=== PATIENT | male | born 1965 | race Caucasian/White ===

== ENCOUNTER 2018-06-05 10:31 | Emergency (ER) | payer OTHER, SELFPAY ==
[2018-06-05 10:35] VITALS: BP 149/76; PULSE 72; RESP 20; TEMP 36.8; O2SAT 97
--- NOTE | 2018-06-05 10:50 | W.ED.GENAD ---
Discharge Plan Disposition Patient Disposition: HOME Condition: Improving Discharge Details Chief Complaint: Nk/Back Pain Clinical Impression: Back pain, Muscle spasm, Sciatica Primary Care Provider: Lour[facility] Chambers ED Provider: Andree Henry Home Meds and New Rx's Prescriptions: Continued glipizide 10 MG tablet 20 mg PO BID RF: 0 amlodipine 10 MG tablet 10 mg PO DAILY RF: 0 metformin [Glucophage] 1,000 MG tablet 1,000 mg PO BID RF: 0 omeprazole 20 MG capsule,delayed release(DR/EC) 40 mg PO DAILY RF: 0 aspirin [Aspirin Low-Strength] 81 MG tablet,chewable 81 mg PO DAILY RF: 0 epinephrine [EpiPen 2-Navjot] 0.3 MG/0.3 ML auto-injector 0.3 mg IJ PRN PRN (Reason: Angioedema) Qty: 2 RF: 0 cetirizine 10 MG tablet,chewable 10 mg PO DAILY RF: 0 atorvastatin 40 MG tablet 40 mg PO DAILY RF: 0 carvedilol [Coreg] 12.5 MG tablet 12.5 mg PO BID RF: 0 ibuprofen 800 MG tablet 800 mg PO DAILY RF: 0 fluticasone propionate 15.8 ML spray,suspension 2 spr NS DAILY PRN PRNRF: 0 insulin detemir U-100 [Levemir U-100 Insulin] 100 UNITS/ML solution 24 units SQ HS RF: 0 Discharge Instructions Instructions: Cyclobenzaprine (By mouth), Oxycodone, Rapid Release (By mouth), Sciatica (ED), Acute Low Back Pain (ED), Lower Back Exercises (ED) Additional Instructions: Encourage hydration. Encouraged gentle stretching and frequent ambulation. Tylenol and/or ibuprofen as needed for discomfort. You may take Flexeril 1 tablet every 8 hours as needed for muscle spasm. Oxycodone as needed for discomfort every 6 hours, take this prior to sleep. If you develop sensation changes, change in your bowel or bladder habits, weakness in your legs with fever/chills or other new/worsening symptoms please seek care urgently once again. [facility] have an appointment tomorrow [facility] at 2 PM. Stand Alone Forms: Work Release Referrals: Lourdes Chambers [Primary Care Provider] - Discharge Data Discharge Date/Time-TO BE ENTERED AT DEPARTURE: 06/05/18 15:00 Medical Decision Making Patient is a 53-year-old male who is typically seen at [facility], presenting today with chief complaint of back pain. He reports that this morning he was out on his lawn when he misstepped his right knee gave out. The [facility] did call ahead of time reported that the patient has known osteoarthritis in the right knee. Status post total knee replacement on the left side. He reports that when his knee gave out he tried to catch himself and felt and heard an audible pop in his lower back. Since that time he has had difficulty with moving. Pain is primarily on the right side of the lumbar spine. Has intermittent tingling in the right leg. He is listing to the right both when ambulating as sitting. He reports that pain is worse with sitting. On exam, the patient is notably uncomfortable and is listing to his right side to help with discomfort. He has palpable spasm near the right SI joint which is the area of maximal tenderness. No midline or paraspinal discomfort with palpation. Range of motion is greatly limited. No saddle paresthesias or perineal paresthesias. He has good strength in his lower extremities although straight leg raise of the right side does cause discomfort. While the patient had initially been describing altered sensation in the right leg, this is not exhibited on exam. Rather, the patient is now able to identify that this only comes on when he is ambulating and forward flexing the right hip. He describes this as a shooting discomfort and altered sensation in the leg. I did discuss this case with Dr. Atkins in particular, questioning cauda equina given his description of altered sensation. However, he advised that this was highly unlikely as it was so transient and reproducible. This is likely secondary more to sciatica given his shooting and reproducibility associated with it. Patient was given milligrams of Valium, Tylenol. He had ibuprofen prior to arrival. Lidocaine patch was placed. After this, patient reports feeling improved. He is moving about better but still appears quite comfortable vertigo with ambulation. We will augment this with oxycodone X-ray reviewed by radiologist: LUMBAR SPINE: There is no evidence of an acute fracture. No spondylolysis or spondylolisthesis is seen. There are endplate osteophytes throughout, greater in the lower thoracic region. There are facet degenerative changes greatest at L 5 - S 1. IMPRESSION: Degenerative changes. No acute abnormality. Postvoid residual 0 Patient is now ambulating much better. He is stretching in the room, I did encourage some gentle stretching and frequent ambulation. His reports that he has had sciatica historically but that has been several years. While the pain has not completely subsided he is feeling that he is able to tolerate his pain much better. The Flexeril worked well for him. We will prescribe him Flexeril for home use. I encouraged that he continue with the Tylenol and ibuprofen. Will prescribe 2 oxycodone tablets to be used as needed but particularly prior to bed. [facility]. They are able to see the patient tomorrow afternoon for reevaluation as well as to continue to prescribe any further medications if warranted. I did give the patient a note for work. He was given strict return precautions, particularly discussed worsening neurologic symptoms that should prompt immediate evaluation once again. All of his questions and concerns were addressed and he is in agreement this plan. HPI General Mode of arrival: ambulatory. Date/Time Provider Initiated Documentation: 06/05/18 10:49. Limitations to Documentation: no limitations. Information obtained by: patient and RN notes reviewed. History of Present Illness 52 year old M presents to the emergency department with the chief complaint of right sided low back pain, described as severe, with intensity rated at 10. Quality is described as sharp, and is localized to the back and right. Patient reports no radiation. Patient started experiencing this hour(s) and it has been constant. No relieving factors improve symptom(s), Immoblization worsens symptoms . Patient notes denies chest pain, cough, fever/chills, headaches, nausea/vomiting, rash, shortness of breath and weakness. Patient did receive the following treatments prior to arrival, NSAID Related Data Home Medications Medication Instructions Recorded Confirmed amlodipine 10 mg PO DAILY 12/20/12 06/05/18 aspirin [Aspirin Low-Strength] 81 mg PO DAILY 12/20/12 06/05/18 glipizide 20 mg PO BID 12/20/12 06/05/18 metformin [Glucophage] 1,000 mg PO BID 12/20/12 06/05/18 omeprazole 40 mg PO DAILY 12/20/12 06/05/18 epinephrine [EpiPen 2-Navjot] 0.3 mg IJ PRN PRN #2 12/21/12 06/05/18 cetirizine 10 mg PO DAILY 11/23/13 06/05/18 atorvastatin 40 mg PO DAILY 06/27/16 06/05/18 carvedilol [Coreg] 12.5 mg PO BID 06/27/16 06/05/18 fluticasone propionate 2 spr NS DAILY PRN PRN 06/27/16 06/05/18 ibuprofen 800 mg PO DAILY 06/27/16 09/28/16 insulin detemir U-100 [Levemir 24 units SQ HS 06/27/16 09/28/16 U-100 Insulin] Previous Rx's Medication Instructions Recorded epinephrine [EpiPen 2-Navjot] 0.3 mg IJ PRN PRN #2 12/21/12 Allergies Allergy/AdvReac Type Severity Reaction Status Date / Time lisinopril Allergy Severe Anaphylaxsi Unverified 06/05/18 10:37 s metoprolol Allergy Severe Anaphylaxsi Unverified 06/05/18 10:37 s General Stated Complaint: Nk/Back Pain ALFREDA: 3 Review of Systems Constitutional Reports as per HPI, Denies chills, Denies fever(s), Denies frequent falls, Denies headache(s) and Denies weakness ENT Denies headache(s) Cardiovascular Reports as per HPI Respiratory Reports as per HPI and Denies cough Musculoskeletal Reports as per HPI and Reports tingling (tingling can radiate down RLE with forward flexion of right hip) Integumentary/Breasts Reports as per HPI, Denies rash and Denies wounds Neurologic Reports as per HPI, Denies frequent falls, Denies headache(s), Denies lack of coordination, Denies sensory deficit, Reports tingling (tingling can radiate down RLE with forward flexion of right hip), Denies paresthesias and Denies weakness [facility] [place] Social History Smoking/Tobacco Use Status: Never Alcohol Intake: never Drug use: Never Substance use type: does not use Do you feel safe at home: Yes Do you feel safe in your relationship?: Yes Exam Const General: cooperative, healthy appearing, comfortable, no acute distress, well developed and well groomed Nutritional Appearance: well nourished and overweight Orientation: alert and awake Neck Neck: normal visual inspection, full ROM and no meningeal signs Resp Effort & Inspection: normal respiratory effort, able to speak in complete sentences and no respiratory distress Auscultation: clear to auscultation bilaterally, no rales, no rhonchi and no wheezes Cardio Rate: regular rate Rhythm: regular rhythm Heart Sounds: S1 normal and S2 normal Back/Spine/Pelvis Back: no CVA tenderness Cervical Spine: normal cervical lordosis and cervical ROM normal Thoracic/Lumbar Spine: thoracic and lumbar spine normal to inspection, No surgical scar(s) present, No thoraco-lumbar ROM normal (limited ROM), No straight leg raise negative bilaterally (unable to complete secondary to pain), No mass, No paraspinal tenderness and thoraco-lumbar ROM limited Pelvis: no pain with anterior-posterior compression and no pain with lateral compression Sacroiliac joints: on the right tender to palpation (palpable muscle spasm over this area) Skin General skin exam: no rashes or lesions noted Lesions: no lesions Rashes: no rashes Trauma: no lacerations or abrasions Neuro General: alert and awake Cognition: normal cognition Speech: speech normal Gait: gait abnormal (listing to the right with ambulation) and not shuffling Motor: muscle tone normal throughout, strength 5/5 throughout, no movement abnormalities noted and no fasciculations Sensory Exam: no sensory deficits noted (no saddle paresthesias, rectal sensation intact) Extrem General: normal to inspection, full ROM and normal capillary refill Psych Appearance: grossly normal and well kempt Mental Status: mental status grossly normal Speech and Movement: speech and movement normal Course Vital Signs Temperature 36.8 C 06/05/18 10:35 Pulse 72 06/05/18 10:35 Respiratory Rate 20 06/05/18 10:35 Blood Pressure 149/76 H 06/05/18 10:35 Pulse Oximetry 97 06/05/18 10:35 Temperature 36.8 C 06/05/18 10:35 Temperature Source Temporal Artery Scan 06/05/18 10:35 Pulse 72 06/05/18 10:35 Respiratory Rate 20 06/05/18 10:35 Respiratory Effort 06/05/18 10:35 Blood Pressure 149/76 H 06/05/18 10:35 Pulse Oximetry 97 06/05/18 10:35 Oxygen Delivery Method Room Air 06/05/18 10:35 Oxygen Flow Rate 0 06/05/18 10:35 Pain Level 10 06/05/18 10:38
--- NOTE | 2018-06-05 10:54 | ED.GENADUL_ITS ---
Discharge Plan Disposition Patient Disposition: HOME Condition: Improving Discharge Details Chief Complaint: Nk/Back Pain Clinical Impression: Back pain, Muscle spasm, Sciatica Primary Care Provider: [facility] ED Provider: Andree Henry Home Meds and New Rx's Prescriptions: Continued glipizide 10 MG tablet 20 mg PO BID RF: 0 amlodipine 10 MG tablet 10 mg PO DAILY RF: 0 metformin [Glucophage] 1,000 MG tablet 1,000 mg PO BID RF: 0 omeprazole 20 MG capsule,delayed release(DR/EC) 40 mg PO DAILY RF: 0 aspirin [Aspirin Low-Strength] 81 MG tablet,chewable 81 mg PO DAILY RF: 0 epinephrine [EpiPen 2-Navjot] 0.3 MG/0.3 ML auto-injector 0.3 mg IJ PRN PRN (Reason: Angioedema) Qty: 2 RF: 0 cetirizine 10 MG tablet,chewable 10 mg PO DAILY RF: 0 atorvastatin 40 MG tablet 40 mg PO DAILY RF: 0 carvedilol [Coreg] 12.5 MG tablet 12.5 mg PO BID RF: 0 ibuprofen 800 MG tablet 800 mg PO DAILY RF: 0 fluticasone propionate 15.8 ML spray,suspension 2 spr NS DAILY PRN PRNRF: 0 insulin detemir U-100 [Levemir U-100 Insulin] 100 UNITS/ML solution 24 units SQ HS RF: 0 Discharge Instructions Instructions: Cyclobenzaprine (By mouth), Oxycodone, Rapid Release (By mouth), Sciatica (ED), Acute Low Back Pain (ED), Lower Back Exercises (ED) Additional Instructions: Encourage hydration. Encouraged gentle stretching and frequent ambulation. Tylenol and/or ibuprofen as needed for discomfort. You may take Flexeril 1 tablet every 8 hours as needed for muscle spasm. Oxycodone as needed for discomfort every 6 hours, take this prior to sleep. If you develop sensation changes, change in your bowel or bladder habits, weakness in your legs with fever/chills or other new/worsening symptoms please seek care urgently once again. [facility] have an appointment tomorrow at [facility] at 2 PM. Stand Alone Forms: Work Release Referrals: Lourdes Chambers [Primary Care Provider] - Discharge Data Discharge Date/Time-TO BE ENTERED AT DEPARTURE: 06/05/18 15:00 Medical Decision Making Patient is a 53-year-old male who is typically seen at the [facility], presenting today with chief complaint of back pain. He reports that this morning he was out on his lawn when he misstepped his right knee gave out. The [facility] did call ahead of time reported that the patient has known osteoarthritis in the right knee. Status post total knee replacement on the left side. He reports that when his knee gave out he tried to catch himself and felt and heard an audible pop in his lower back. Since that time he has had difficulty with moving. Pain is primarily on the right side of the lumbar spine. Has intermittent tingling in the right leg. He is listing to the right both when ambulating as sitting. He reports that pain is worse with sitting. On exam, the patient is notably uncomfortable and is listing to his right side to help with discomfort. He has palpable spasm near the right SI joint which is the area of maximal tenderness. No midline or paraspinal discomfort with palpation. Range of motion is greatly limited. No saddle paresthesias or perineal paresthesias. He has good strength in his lower extremities although straight leg raise of the right side does cause discomfort. While the patient had initially been describing altered sensation in the right leg, this is not exhibited on exam. Rather, the patient is now able to identify that this only comes on when he is ambulating and forward flexing the right hip. He describes this as a shooting discomfort and altered sensation in the leg. I did discuss this case with Dr. Atkins in particular, questioning cauda equina given his description of altered sensation. However, he advised that this was highly unlikely as it was so transient and reproducible. This is likely secondary more to sciatica given his shooting and reproducibility associated with it. Patient was given milligrams of Valium, Tylenol. He had ibuprofen prior to arrival. Lidocaine patch was placed. After this, patient reports feeling improved. He is moving about better but still appears quite comfortable vertigo with ambulation. We will augment this with oxycodone X-ray reviewed by radiologist: LUMBAR SPINE: There is no evidence of an acute fracture. No spondylolysis or spondylolisthesis is seen. There are endplate osteophytes throughout, greater in the lower thoracic region. There are facet degenerative changes greatest at L 5 - S 1. IMPRESSION: Degenerative changes. No acute abnormality. Postvoid residual 0 Patient is now ambulating much better. He is stretching in the room, I did encourage some gentle stretching and frequent ambulation. His reports that he has had sciatica historically but that has been several years. While the pain has not completely subsided he is feeling that he is able to tolerate his pain much better. The Flexeril worked well for him. We will prescribe him F lexeril for home use. I encouraged that he continue with the Tylenol and ibuprofen. Will prescribe 2 oxycodone tablets to be used as needed but particularly prior to bed. [facility]. They are able to see the patient tomorrow afternoon for reevaluation as well as to continue to prescribe any further medications if warranted. I did give the patient a note for work. He was given strict return precautions, particularly discussed worsening neurologic symptoms that should prompt immediate evaluation once again. All of his questions and concerns were addressed and he is in agreement this plan. HPI General Mode of arrival: ambulatory . Date/Time Provider Initiated Documentation: 06/05/18 10:49 . Limitations to Documentation: no limitations . Information obtained by: patient and RN notes reviewed . History of Present Illness 52 year old M presents to the emergency department with the chief complaint of right sided low back pain, described as severe, with intensity rated at 10. Quality is described as sharp, and is localized to the back and right. Patient reports no radiation. Patient started experiencing this hour(s) and it has been constant. No relieving factors improve symptom(s), Immoblization worsens symptoms . Patient notes denies chest pain, cough, fever/chills, headaches, nausea/vomiting, rash, shortness of breath and weakness. Patient did receive the following treatments prior to arrival, NSAID Related Data Home Medications Medication Instructions Recorded Confirmed amlodipine 10 mg PO DAILY 12/20/12 06/05/18 aspirin [Aspirin Low-Strength] 81 mg PO DAILY 12/20/12 06/05/18 glipizide 20 mg PO BID 12/20/12 06/05/18 metformin [Glucophage] 1,000 mg PO BID 12/20/12 06/05/18 omeprazole 40 mg PO DAILY 12/20/12 06/05/18 epinephrine [EpiPen 2-Navjot] 0.3 mg IJ PRN PRN #2 12/21/12 06/05/18 cetirizine 10 mg PO DAILY 11/23/13 06/05/18 atorvastatin 40 mg PO DAILY 06/27/16 06/05/18 carvedilol [Coreg] 12.5 mg PO BID 06/27/16 06/05/18 fluticasone propionate 2 spr NS DAILY PRN PRN 06/27/16 06/05/18 ibuprofen 800 mg PO DAILY 06/27/16 09/28/16 insulin detemir U-100 [Levemir 24 units SQ HS 06/27/16 09/28/16 U-100 Insulin] Previous Rx's Medication Instructions Recorded epinephrine [EpiPen 2-Navjot] 0.3 mg IJ PRN PRN #2 12/21/12 Allergies Allergy/AdvReac Type Severity Reaction Status Date / Time lisinopril Allergy Severe Anaphylaxsi Unverified 06/05/18 10:37 s metoprolol Allergy Severe Anaphylaxsi Unverified 06/05/18 10:37 s General Stated Complaint: Nk/Back Pain ALFREDA: 3 Review of Systems Constitutional Reports as per HPI, Denies chills, Denies fever(s), Denies frequent falls, Denies headache(s) and Denies weakness ENT Denies headache(s) Cardiovascular Reports as per HPI Respiratory Reports as per HPI and Denies cough Musculoskeletal Reports as per HPI and Reports tingling (tingling can radiate down RLE with forward flexion of right hip) Integumentary/Breasts Reports as per HPI, Denies rash and Denies wounds Neurologic Reports as per HPI, Denies frequent falls, Denies headache(s), Denies lack of coordination, Denies sensory deficit, Reports tingling (tingling can radiate down RLE with forward flexion of right hip), Denies paresthesias and Denies weakness [facility] Social History Smoking/Tobacco Use Status: Never Alcohol Intake: never Drug use: Never Substance use type: does not use Do you feel safe at home: Yes Do you feel safe in your relationship?: Yes Exam Const General: cooperative, healthy appearing, comfortable, no acute distress, well developed and well groomed Nutritional Appearance: well nourished and overweight Orientation: alert and awake Neck Neck: normal visual inspection, full ROM and no meningeal signs Resp Effort & Inspection: normal respiratory effort, able to speak in complete sentences and no respiratory distress Auscultation: clear to auscultation bilaterally, no rales, no rhonchi and no wheezes Cardio Rate: regular rate Rhythm: regular rhythm Heart Sounds: S1 normal and S2 normal Back/Spine/Pelvis Back: no CVA tenderness Cervical Spine: normal cervical lordosis and cervical ROM normal Thoracic/Lumbar Spine: thoracic and lumbar spine normal to inspection, No surgical scar(s) present, No thoraco-lumbar ROM normal (limited ROM), No straight leg raise negative bilaterally (unable to complete secondary to pain), No mass, No paraspinal tenderness and thoraco-lumbar ROM limited Pelvis: no pain with anterior-posterior compression and no pain with lateral compression Sacroiliac joints: on the right tender to palpation (palpable muscle spasm over this area) Skin General skin exam: no rashes or lesions noted Lesions: no lesions Rashes: no rashes Trauma: no lacerations or abrasions Neuro General: alert and awake Cognition: normal cognition Speech: speech normal Gait: gait abnormal (listing to the right with ambulation) and not shuffling Motor: muscle tone normal throughout, strength 5/5 throughout, no movement abnormalities noted and no fasciculations Sensory Exam: no sensory deficits noted (no saddle paresthesias, rectal sensati on intact) Extrem General: normal to inspection, full ROM and normal capillary refill Psych Appearance: grossly normal and well kempt Mental Status: mental status grossly normal Speech and Movement: speech and movement normal Course Vital Signs Temperature 36.8 C 06/05/18 10:35 Pulse 72 06/05/18 10:35 Respiratory Rate 20 06/05/18 10:35 Blood Pressure 149/76 H 06/05/18 10:35 Pulse Oximetry 97 06/05/18 10:35 Temperature 36.8 C 06/05/18 10:35 Temperature Source Temporal Artery Scan 06/05/18 10:35 Pulse 72 06/05/18 10:35 Respiratory Rate 20 06/05/18 10:35 Respiratory Effort 06/05/18 10:35 Blood Pressure 149/76 H 06/05/18 10:35 Pulse Oximetry 97 06/05/18 10:35 Oxygen Delivery Method Room Air 06/05/18 10:35 Oxygen Flow Rate 0 04/23/19 10:35 Pain Level 10 06/05/18 10:38
[2018-06-05] MEDS: Lidocaine 5% Patch 1 PATCH TP (11:31)
[2018-06-05] MEDS: Acetaminophen 500 MG TAB 1000 MG PO (11:31)
[2018-06-05] MEDS: diazePAM 5 MG TAB PO (11:31)
--- NOTE | 2018-06-05 11:40 | DI.RAD_ITS ---
SYMPTOMS/DIAGNOSIS: PAIN LUMBAR SPINE: There is no evidence of an acute fracture. No spondylolysis or spondylolisthesis is seen. There are endplate osteophytes throughout, greater in the lower thoracic region. There are facet degenerative changes greatest at L 5 - S 1. IMPRESSION: Degenerative changes. No acute abnormality.
[2018-06-05] MEDS: oxyCODONE 5 MG TAB PO (13:10)
[2018-06-05] MEDS: Cyclobenzaprine 10 MG TAB 30 MG PO (14:57)
[2018-06-05] MEDS: Cyclobenzaprine 10 MG TAB PO (14:57)
[2018-06-05] MEDS: oxyCODONE 5 MG TAB 10 MG PO (14:57)
[2018-06-05 14:58] VITALS: BP 131/77; PULSE 60; RESP 18; O2SAT 95
== END 2018-06-05 15:00 | disposition home or self-care (01) ==
PROVIDERS: Emergency Provider Physician Assistant; PCP Nurse Practitioner Primary Care
DX: M54.5 Low back pain (principal); R20.2 Paresthesia of skin
CPT/HCPCS: 93005; 99284; 72110; 93010

== ENCOUNTER 2020-03-18 11:57 | Emergency (ER) | payer OTHER, SELFPAY ==
[2020-03-18 12:02] VITALS: BP 136/95; PULSE 89; RESP 22; TEMP 36.3; O2SAT 97
--- NOTE | 2020-03-18 12:20 | W.ED.GENAD ---
Discharge Plan Disposition Patient Disposition: HOME Condition: Good Discharge Details Clinical Impression: Back pain Primary Care Provider: Lourdes Chambers ED Provider: Ramila Jones Home Meds and New Rx's Prescriptions: New hydrocodone-acetaminophen [[place]] 5-325 mg tablet 1 tab PO BID PRNQty: 5 RF: 0 lidocaine [Lidoderm] 5 % adhesive patch,medicated 1 patch topical DAILY Qty: 15 RF: 0 orphenadrine citrate 100 mg tablet extended release 100 mg PO ONCE Qty: 14 RF: 0 No Action glipizide 10 MG tablet 20 mg PO BID RF: 0 amlodipine 10 MG tablet 10 mg PO DAILY RF: 0 metformin [Glucophage] 1,000 MG tablet 1,000 mg PO BID RF: 0 omeprazole 20 MG capsule,delayed release(DR/EC) 20 mg PO DAILY RF: 0 epinephrine [EpiPen 2-Navjot] 0.3 MG/0.3 ML auto-injector 0.3 mg IJ PRN PRN (Reason: Angioedema) Qty: 2 RF: 0 cetirizine 10 MG tablet,chewable 10 mg PO DAILY RF: 0 atorvastatin 40 MG tablet 40 mg PO DAILY RF: 0 carvedilol [Coreg] 12.5 MG tablet 12.5 mg PO BID RF: 0 ibuprofen 800 MG tablet 800 mg PO DAILY RF: 0 fluticasone propionate 15.8 ML spray,suspension 2 spr NS DAILY PRN PRNRF: 0 Levemir U-100 Insulin 100 UNITS/ML solution 80 units SQ HS RF: 0 levetiracetam 1,000 mg tablet 1,000 mg PO BID RF: 0 cyanocobalamin (vitamin B-12) 1,000 mcg Tablet 1,000 mcg PO DAILY RF: 0 clopidogrel 75 mg Tablet 75 mg PO DAILY RF: 0 acetaminophen 500 mg Tablet 1,000 mg PO Q6H PRNRF: 0 carboxymethylcellulose sodium 0.5 % Drops 1 drp OPHTHALMIC (EYE) 4-6XD PRNRF: 0 meclizine 25 mg Tablet,Chewable 25 mg PO BID RF: 0 insulin aspart U-100 100 unit/mL (3 mL) Insulin Pen 14 unit SUBCUT TID RF: 0 glucose Tablet,Chewable 4 g PO PRN PRNRF: 0 hydrochlorothiazide 12.5 mg Tablet 12.5 mg PO DAILY RF: 0 diclofenac sodium 1 % Gel 4 g TOPICAL QID RF: 0 semaglutide 1 mg/dose (2 mg/1.5 mL) Pen Injector 1 mg SUBCUT QWEEK RF: 0 Discharge Instructions Instructions: Back Pain (ED), Core Strengthening Exercises (GEN) Additional Instructions: no Heavy lifting, shoveling, repetitive motion Light stretching recommended Please return immediately with strength or sensation changes in the groin, changes in bowel or bladder, fever, chills Recheck with your primary care physician in 3 to 5 days with persistent pain Take Tylenol every 4-6 hours, 650 mg Take muscle relaxants as needed for musculoskeletal pain Take oxycodone sparingly, this medication is addictive and you should not drive or work on this medication, no operating machinery for 8 hours after taking his medication Medical Decision Making Patient presents with Back pain, he is neurologically intact without evidence of cauda equina syndrome , my suspicion for AAA o is low given clinical exam findings, pathology is quite low given reproducible pain which is positional in nature and history of discomfort in the past Given 5 oxycodone, discussed with addiction and filed opiate risk form including refraining from operating machinery Pulsatile at and Lidoderm patches Declines need for work note Recheck in 3 to 5 days recommended primary care physician Return depression patient expressed understanding This is patient distended lumbar he still has the findings on exam Differential Diagnosis Differential Diagnosis: Cauda equina, musculoskeletal back pain, lumbar radiculopathy, AAA Medical Records Medical records reviewed: Yes I reviewed the patient's medical records. HPI This 54-year-old male presents with a cough. Patient typical intermittently for him. He states the pain started on Monday after a day of shoveling. He denies any radiation of the pain and describes it as being in pain right nonradiating to his external portion of the chest. He denies any abdominal pain, chest pain, shortness of breath, strength or sensation changes to his groin or extremities. He denies any weakness or fever. He denies history of IV drug abuse. Pain is exacerbated with movement and position. He is a type II diabetic for which he uses insulin and tablets for. He states that his blood sugar was 150 last night which is consistent for him. He denies any signs or symptoms of infection, chest pain, shortness of breath, nausea, vomiting, chills, or any additional time. Denies changes in bowel or bladder. General Date/Time Provider Initiated Documentation: 03/18/20 11:58. Related Data Home Medications Medication Instructions Recorded Confirmed amlodipine 10 mg PO DAILY 12/20/12 03/18/20 glipizide 20 mg PO BID 12/20/12 03/18/20 metformin [Glucophage] 1,000 mg PO BID 12/20/12 03/18/20 omeprazole 20 mg PO DAILY 12/20/12 03/18/20 epinephrine [EpiPen 2-Navjot] 0.3 mg IJ PRN PRN #2 12/21/12 03/18/20 cetirizine 10 mg PO DAILY 11/23/13 03/18/20 Levemir U-100 Insulin 80 units SQ HS 06/27/16 03/18/20 atorvastatin 40 mg PO DAILY 06/27/16 03/18/20 carvedilol [Coreg] 12.5 mg PO BID 06/27/16 03/18/20 fluticasone propionate 2 spr NS DAILY PRN PRN 06/27/16 03/18/20 ibuprofen 800 mg PO DAILY 06/27/16 03/18/20 acetaminophen 1,000 mg PO Q6H PRN 03/18/20 03/18/20 carboxymethylcellulose sodium 1 drp OPHTHALMIC (EYE) 4-6XD PRN 03/18/20 03/18/20 clopidogrel 75 mg PO DAILY 03/18/20 03/18/20 cyanocobalamin (vitamin B-12) 1,000 mcg PO DAILY 03/18/20 03/18/20 diclofenac sodium 4 g TOPICAL QID 03/18/20 03/18/20 glucose 4 g PO PRN PRN 03/18/20 03/18/20 hydrochlorothiazide 12.5 mg PO DAILY 03/18/20 03/18/20 hydrocodone-acetaminophen [[place]] 1 tab PO BID PRN #5 tab 03/18/20 insulin aspart U-100 14 unit SUBCUT TID 03/18/20 03/18/20 levetiracetam 1,000 mg PO BID 03/18/20 03/18/20 lidocaine [Lidoderm] 1 patch TOPICAL DAILY #15 ea 03/18/20 meclizine 25 mg PO BID 03/18/20 03/18/20 orphenadrine citrate 100 mg PO ONCE #14 tab 03/18/20 semaglutide 1 mg SUBCUT QWEEK 03/18/20 03/18/20 Previous Rx's Medication Instructions Recorded epinephrine [EpiPen 2-Navjot] 0.3 mg IJ PRN PRN #2 12/21/12 hydrocodone-acetaminophen [[place]] 1 tab PO BID PRN #5 tab 03/18/20 lidocaine [Lidoderm] 1 patch TOPICAL DAILY #15 ea 03/18/20 orphenadrine citrate 100 mg PO ONCE #14 tab 03/18/20 Allergies Allergy/AdvReac Type Severity Reaction Status Date / Time lisinopril Allergy Severe Anaphylaxsi Unverified 03/18/20 12:05 s metoprolol Allergy Severe Anaphylaxsi Unverified 03/18/20 12:05 s General Stated Complaint: Nk/Back Pain ALFREDA: 3 Review of Systems Narrative: Review of systems negative x7 aside from where indicated in HPI [facility] Social History Smoking/Tobacco Use Status: Never Smoking risk assessment performed?: Yes Alcohol Intake: never Drug use: Never Substance use type: does not use Do you feel safe at home: Yes Do you feel safe in your relationship?: Yes Exam Const General: cooperative and no acute distress Neck Carotids: no bruits Chest Chest: normal inspection of the chest Resp Effort & Inspection: normal respiratory effort and able to speak in complete sentences Cardio Rate: regular rate Rhythm: regular rhythm Bruits: no abdominal aortic bruits Pulses: normal peripheral pulses GI Inspection: normal to inspection and no visible pulsation Back/Spine/Pelvis Back: no CVA tenderness Sacroiliac joints: on the right Other: Tenderness palpation to the paraspinal region on the lumbar region and sciatic notch/psoas Skin General skin exam: no rashes or lesions noted Neuro General: patient alert and patient oriented x3 Course Vital Signs Vital signs: Vital Signs Temperature 36.3 C L 03/18/20 12:02 Pulse 89 03/18/20 12:02 Respiratory Rate 22 03/18/20 12:02 Blood Pressure 136/95 H 03/18/20 12:02 Pulse Oximetry 97 03/18/20 12:02 Temperature 36.3 C L 03/18/20 12:02 Temperature Source Skin 03/18/20 12:02 Pulse 89 03/18/20 12:02 Respiratory Rate 22 03/18/20 12:02 Respiratory Effort Non-Labored 03/18/20 12:09 Blood Pressure 136/95 H 03/18/20 12:02 Blood Pressure Position Sitting 03/18/20 12:02 Pulse Oximetry 97 03/18/20 12:02 Oxygen Delivery Method Room Air 03/18/20 12:02 Oxygen Flow Rate 0 03/18/20 12:02 Pain Level 7 03/18/20 12:02
[2020-03-18] MEDS: Acetaminophen 500 MG TAB 1000 MG PO (12:31)
[2020-03-18] MEDS: Lidocaine 5% Patch 1 PATCH TP (12:31)
== END 2020-03-18 12:47 | disposition home or self-care (01) ==
PROVIDERS: Emergency Provider Physician Assistant; PCP Nurse Practitioner Primary Care
DX: M54.5 Low back pain (principal); W00.0XXA Fall on same level due to ice and snow, initial encounter; Y93.H1 Activity, digging, shoveling and raking
CPT/HCPCS: 99283

== ENCOUNTER 2021-03-08 03:59 | Outpatient (CLI) | payer OTHER, SELFPAY ==
--- NOTE | 2021-03-08 10:09 | PDOC.EEG ---
Neurology EEG EEG: [facility] Department of Neurology EEG REPORT Date of Recordin03/08/21 Interpreting Physician: Dr. Christy Allen PCP/Referring Provider: Lourdes Chambers NP Reason for study: Mr. Watson is a 55 year-old man with a history of remote seizure x2, previously treated with levetiracetam, and now has weaned himself off. Current Medications: Amlodipine 10 mg daily, atorvastatin 40 mg daily, HCTZ 0.5 mg daily, meclizine 25 mg twice daily, omeprazole, ursodiol 300 mg twice daily, carvedilol 12.5 mg twice daily. METHODS: A 21 channel digitized electroencephalogram was performed in the [facility] Clinical Neurophysiology Laboratory. The 10/20 international system of electrode placement was used and bipolar and referential electrode montages were recorded. In addition to EEG the patient was monitored for EKG and lateral/vertical eye movements. Activation procedures of photic stimulation and hyperventilation were performed if applicable. Video was used during activation procedures and during events where applicable. The duration of the recording was 30 minutes. DESCRIPTION OF EEG: The patient was noted to be awake only during the recording. During maximal wakefulness a 9-Hz posterior background rhythm was present which was well-modulated, symmetrical, reactive to eye opening, and of moderate voltage. With eye opening the background activity changed to a low voltage mixture of alpha, beta, and occasional theta range frequencies. Faster frequencies were present in the bilateral anterior head regions. There was a normal anterior-posterior voltage gradient. No drowsiness or stage II sleep was recorded. Activating Procedures: Photic stimulation was performed which produced a symmetrical posterior driving response at various flash frequencies. Hyperventilation was performed with moderate effort and produced no physiological slowing of the background. EKG: EKG revealed normal sinus rhythm. INTERPRETATION: This EEG is normal during the awake state as well as during photic stimulation and hyperventilation. PRIOR EEG: none CLINICAL CORRELATION: No focal regions of cerebral dysfunction or epileptiform activity was present. No sleep was recorded during the study which reduces the sensitivity of the exam. If seizure remains a part of the differential, consider a repeat sleep-deprived EEG or overnight ambulatory EEG. Epilepsy remains a clinical diagnosis and a normal EEG does not rule out epilepsy. Clinical correlation is advised. Christy Allen MD
== END 2021-03-08 04:00 | disposition home or self-care (01) ==
PROVIDERS: PCP Nurse Practitioner Primary Care
DX: R56.9 Unspecified convulsions (principal)
CPT/HCPCS: 95816

== ENCOUNTER → 2022-12-21 00:52 | Outpatient (CLI) | payer OTHER, SELFPAY ==
--- NOTE | 2022-12-21 | DI.RAD_ITS ---
Exam(s) XR FACIAL BONES COMPLETE EXAM: XR FACIAL BONES COMPLETE CLINICAL HISTORY: AUTH# [id number], R68.84 JAW PAIN. TECHNIQUE: 2D digital imaging was performed. Four images were obtained. COMPARISON: No exams were available for comparison FINDINGS: BONES: No evidence of fracture. No lytic or sclerotic lesions are seen. The mandible is intact. Th e visualized paranasal sinuses are clear without fluid levels noted. SOFT TISSUES: Unremarkable. IMPRESSION: No acute abnormality. DATA REPOSITORY: RADIATION DOSE DELIVERED:
== END ==
PROVIDERS: PCP Nurse Practitioner Primary Care; Visit Provider Nurse Practitioner Adult Health
DX: R68.84 Jaw pain (principal)
CPT/HCPCS: 70150

== ENCOUNTER 2023-03-14 15:04 | Outpatient (CLI) | payer OTHER, SELFPAY ==
[2023-03-14 10:36] LABS: Hemoglobin A1C 7.6 % (<5.7)
[2023-03-14 10:49] LABS: Anion Gap 11.5 mmol/L (3-11); BUN 16 mg/dL (7-18); CO2 26.5 mmol/L (21.0-32.0); CREATININE 1.4 mg/dL (0.70-1.30); Calcium 9.5 mg/dL (8.5-10.1); Calculated LDL 103 mg/dL (<100); Chloride 100 mmol/L (98-107); Cholesterol 172 mg/dL (<200); Estimated GFR 58.62 (mL/min/1.73m2); Glucose 156 mg/dL (74-106); HDL Cholesterol 45 mg/dL (40-60); Potassium 3.8 mmol/L (3.5-5.1); Sodium 138 mmol/L (136-145); Triglyceride 124 mg/dL (<150)
== END 2023-03-14 15:05 | disposition home or self-care (01) ==
LOC: LBO 15:04
PROVIDERS: PCP Nurse Practitioner Primary Care; Visit Provider Nurse Practitioner Adult Health
DX: E11.8 Type 2 diabetes mellitus with unspecified complications (principal)
CPT/HCPCS: 36415; 80048; 80061; 83036

== ENCOUNTER 2023-05-08 18:43 | Emergency (ER) | payer OTHER, SELFPAY ==
[2023-05-08 18:48] VITALS: BP 168/100; PULSE 98; RESP 18; O2SAT 97
--- NOTE | 2023-05-08 19:00 | DI.RAD_ITS ---
Exam(s) XR KNEE LT 3V AP,LAT,DOMINGO EXAM: XR KNEE LT 3V AP,LAT,DOMINGO CLINICAL HISTORY: s/p knee replacement, injury. TECHNIQUE: 2D digital imaging was performed. Three images were obtained. AP, PA tunnel and lateral views were obtained. COMPARISON: CR LEFT KNEE 3 VIEW COMPLETE from 01/21/2009 CR LEFT KNEE 3 VIEW COMPLETE from 09/28/2016 FINDINGS: BONES: There are stable post operative changes of a left total knee replacement present. No fracture or dislocation. There is an old healed proximal left fibular fracture. JOINTS: The orthopedic hardware is in good position. No evidence of hardware loosening. SOFT TISSUE: Vascular calcifications are present. IMPRESSION: 1. Stable left total knee replacement. 2. No acute abnormality. DATA REPOSITORY: RADIATION DOSE DELIVERED:
[2023-05-08] MEDS: Bacitracin 1 PACKET (19:11)
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
--- NOTE | 2023-05-08 19:56 | DI.VRAD_ITS ---
PROCEDURE INFORMATION: Exam: XR Left Knee Exam date and time: 05/08/2023 7:28 PM Age: 57 years old Clinical indication: Other: S/P knee replacement, injury; Prior surgery; Surgery date: 6+ months; Surgery type: Knee replacement 5+ years ago TECHNIQUE: Imaging protocol: Radiologic exam of the left knee. Views: 3 views. COMPARISON: CR LEFT KNEE 3 VIEW COMPLETE 09/28/2016 7:32 AM FINDINGS: Bones/joints: Bones are diffusely osteopenic. Left knee prosthesis in place with no evidence of hardware failure or loosening. No acute fracture. No significant joint fluid. Soft tissues: Normal. IMPRESSION: No acute pathology evident. Dictated and Authenticated by: Fernie Michaels MD. Ordering:DEON Mcgrath MD
== END 2023-05-08 20:18 | disposition home or self-care (01) ==
PROVIDERS: Emergency Provider Physician Assistant; PCP Nurse Practitioner Adult Health
DX: M25.521 Pain in right elbow (principal); M25.522 Pain in left elbow; M25.561 Pain in right knee; M25.562 Pain in left knee; Z96.652 Presence of left artificial knee joint; Y04.8XXA Assault by other bodily force, initial encounter; Y99.0 Civilian activity done for income or pay; S00.83XA Contusion of other part of head, initial encounter; S60.416A Abrasion of right little finger, initial encounter
CPT/HCPCS: 73562; 99283

== ENCOUNTER 2023-08-25 16:35 | Outpatient (CLI) | payer OTHER, SELFPAY ==
--- NOTE | 2023-08-27 22:37 | PDOC.EEG_ITS ---
Neurology EEG EEG: [facility] Department of Neurology EEG REPORT Date of Recordin08/25/23 Interpreting Physician: Dr. Christy Allen PCP/Referring Provider: Dr. Shantal Fang Reason for study: Kip Watson is a 58 year-old with epilepsy with recent fogginess in his thinking. Current Medications: Home Medications ?Medication ?Instructions ?Recorded ?Confirmed ?Type amlodipine 10 mg tablet 10 mg PO DAILY 12/20/12 05/08/23 History epinephrine 0.3 mg/0.3 mL 0.3 mg (0.3 mL) IJ PRN PRN 12/21/12 05/08/23 Rx injection, auto-injector (EpiPen Angioedema ##2 2-Navjot) cetirizine 10 mg chewable tablet 10 mg PO DAILY 11/23/13 05/08/23 History fluticasone propionate 50 2 spr NS DAILY PRN PRN 06/27/16 05/08/23 History mcg/actuation nasal spray,suspension ibuprofen 800 mg tablet 800 mg PO DAILY 06/27/16 05/08/23 History acetaminophen 500 mg tablet 1,000 mg PO Q6H PRN 03/18/20 05/08/23 History hydrochlorothiazide 12.5 mg tablet 12.5 mg PO DAILY 03/18/20 05/08/23 History meclizine 25 mg chewable tablet 25 mg PO BID 03/18/20 05/08/23 History cholecalciferol (vitamin D3) 50 50 mcg PO DAILY 02/23/23 05/08/23 History mcg (2,000 unit) capsule benzonatate 100 mg capsule 100 mg PO TID PRN cough #14 caps 03/01/23 05/08/23 Rx empagliflozin 25 mg tablet 12.5 mg PO DAILY 04/05/23 05/08/23 History ergocalciferol (vitamin D2) 1,250 1,250 mcg PO QWEEK 04/05/23 05/08/23 History mcg (50,000 unit) capsule levetiracetam 250 mg tablet 250 mg PO BID 04/05/23 05/08/23 History loratadine 10 mg tablet (Allergy 10 mg PO DAILY 04/05/23 05/08/23 History Relief (loratadine)) metformin 500 mg tablet,extended 2,000 mg PO DAILY 04/05/23 05/08/23 History release 24 hr rosuvastatin 10 mg tablet 30 mg PO DAILY 04/05/23 05/08/23 History metaxalone 800 mg tablet 800 mg PO TID PRN #6 tabs 05/08/23 Rx METHODS: A 21 channel digitized electroencephalogram was performed in the [facility] Clinical Neurophysiology Laboratory. The 10/20 international system of electrode placement was used and bipolar and referential electrode montages were recorded. In addition to EEG the patient was monitored for EKG and lateral/vertical eye movements. Activation procedures of photic stimulation and hyperventilation were performed if applicable. Video was used during activation procedures and during events where applicable. The duration of the recording was 30 minutes. DESCRIPTION OF EEG: The patient was noted to be awake during the recording. During maximal wakefulness a 10-Hz posterior background rhythm was present which was well- modulated, symmetrical, reactive to eye opening, and of moderate voltage. With eye opening the background activity changed to a low voltage mixture of alpha, beta, and occasional theta range frequencies. Faster frequencies were present in the bilateral anterior head regions. There was a normal anterior-posterior voltage gradient. No drowsiness or stage II sleep was recorded. Activating Procedures: Photic stimulation was performed which produced a symmetrical posterior driving response at various flash frequencies. Hyperventilation was performed with moderate effort and produced no physiological slowing of the background. EKG: EKG revealed normal sinus rhythm. INTERPRETATION: This EEG is normal during the awake state as well as during photic stimulation and hyperventilation. PRIOR EEG: none CLINICAL CORRELATION: No focal regions of cerebral dysfunction or epileptiform activity was present. No sleep was recorded during the study which reduces the sensitivity of the exam. If seizure remains a part of the differential, consider a repeat sleep- deprived EEG or overnight ambulatory EEG. Epilepsy remains a clinical diagnosis and a normal EEG does not rule out epilepsy. Clinical correlation is advised. Christy Allen MD Date of service: 08/25/23
== END 2023-08-25 16:36 | disposition home or self-care (01) ==
PROVIDERS: PCP Nurse Practitioner Adult Health; Visit Provider Internal Medicine
DX: R41.89 Other symptoms and signs involving cognitive functions and awareness (principal)
CPT/HCPCS: 95816

== ENCOUNTER 2023-09-12 03:44 | Outpatient (CLI) | payer OTHER, SELFPAY ==
[2023-09-12 07:57] LABS: Anion Gap -0.1 mmol/L (3-11); BUN 16 mg/dL (7-18); CO2 27.1 mmol/L (21.0-32.0); CREATININE 1.3 mg/dL (0.70-1.30); Calcium 9.4 mg/dL (8.5-10.1); Calculated LDL 80 mg/dL (<100); Chloride 98 mmol/L (98-107); Cholesterol 154 mg/dL (<200); Estimated GFR 63.68 (mL/min/1.73m2); Glucose 176 mg/dL (74-106); HDL Cholesterol 54 mg/dL (40-60); Sodium 125 mmol/L (136-145); Triglyceride 100 mg/dL (<150)
[2023-09-12 07:58] LABS: Hemoglobin A1C 7.4 % (<5.7)
== END 2023-09-12 03:45 | disposition home or self-care (01) ==
LOC: LBO 03:44
PROVIDERS: PCP Nurse Practitioner Adult Health; Visit Provider Nurse Practitioner Adult Health
DX: E11.8 Type 2 diabetes mellitus with unspecified complications (principal)
CPT/HCPCS: 36415; 80048; 80061; 83036

== ENCOUNTER 2023-10-06 14:03 | Emergency (ER) | payer OTHER, SELFPAY ==
[2023-10-06 14:05] VITALS: BP 151/89; PULSE 89; RESP 18; TEMP 36.8; O2SAT 96
--- NOTE | 2023-10-06 14:57 | DI.RAD_ITS ---
Exam(s) XR HAND RT COMPLETE EXAM: XR HAND RT COMPLETE CLINICAL HISTORY: Right thumb pain. TECHNIQUE: 2D digital imaging was performed. Three views. COMPARISON: No exams were available for comparison FINDINGS: BONES: No acute fracture is present. No bony destructive lesion is seen. JOINTS: No dislocation present. Minimal degenerative changes at the interphalangeal joints. SOFT TISSUE: Normal. IMPRESSION: Minimal degenerative changes at the interphalangeal joints. DATA REPOSITORY: RADIATION DOSE DELIVERED:
--- NOTE | 2023-10-06 15:02 | W.ED.GENAD ---
Discharge Plan Disposition Patient Disposition: Home Condition: Stable Discharge Details Clinical Impression: Sprain of right thumb Primary Care Provider: Whit Ruiz ED Provider: Heath Lanier Home Meds and New Rx's Prescriptions: Continued cholecalciferol (vitamin D3) 50 mcg (2,000 unit) capsule 50 mcg PO DAILY rosuvastatin 10 mg tablet 30 mg PO DAILY ketoconazole 2 % cream 1 applic topical DAILY Qty: 120 6RF Rx Instructions: Apply to toenails once daily benzonatate 100 mg capsule 100 mg PO TID PRN (Reason: cough) Qty: 14 0RF loratadine [Allergy Relief (loratadine)] 10 mg tablet 10 mg PO DAILY metformin 500 mg tablet extended release 24 hr 2,000 mg PO DAILY empagliflozin 25 mg tablet 12.5 mg PO DAILY ergocalciferol (vitamin D2) 1,250 mcg (50,000 unit) capsule 1,250 mcg PO QWEEK levetiracetam 250 mg tablet 250 mg PO BID amlodipine 10 MG tablet 10 mg PO DAILY epinephrine [EpiPen 2-Navjot] 0.3 MG/0.3 ML auto-injector 0.3 mg IJ PRN PRN (Reason: Angioedema) Qty: 2 0RF cetirizine 10 MG tablet,chewable 10 mg PO DAILY ibuprofen 800 MG tablet 800 mg PO DAILY fluticasone propionate 15.8 ML spray,suspension 2 spr NS DAILY PRN PRN acetaminophen 500 mg Tablet 1,000 mg PO Q6H PRN meclizine 25 mg Tablet,Chewable 25 mg PO BID hydrochlorothiazide 12.5 mg Tablet 12.5 mg PO DAILY metaxalone 800 mg tablet 800 mg PO TID PRNQty: 6 0RF Discharge Instructions Instructions: Sprained Thumb Additional Instructions: You were seen in the emergency department for your fall last week with a sprain of your right thumb, please remain in the thumb spica splint for 1 to 2 weeks, frequently rest, ice, compress and elevate the area. Please use therapeutic dosing of Tylenol (acetamenophen) & Advil (ibuprofen) in an alternating fashion as follows: Take 1000mg of Tylenol every 6 hours without missing doses- that is 4 times per day. [place] in between the Tylenol dosings, take 400-600mg of Advil also on a 6 hour schedule, that is also 4 times per day. The daily maximum dosing of Tylenol is 4000mg, and the daily maximum dosing of Advil is 2400mg. This is safe to do for weeks. Please note that some common cold medications & prescription pain medications may contain acetamenophen and you need to read OTC drug labels and factor that in to maximum daily dosings. Follow-up with orthopedics for any failure to improve after 2 weeks, please return to the emergency department for any severe signs of redness, swelling, fever, red streaking up the arm, neurovascular compromise of the hand Referrals: [facility] [Provider Group] Whit Ruiz [Primary Care Provider] - Discharge Data Discharge Date/Time-TO BE ENTERED AT DEPARTURE: 10/06/23 15:31 HPI General Date/Time Provider Initiated Documentation: 10/06/23 14:29. HPI Narrative: 58 year-old male presents to ED today by POV/ambulating, works here as security, with a chief complaint of R thumb injury from a minor fall 1 week ago. Quality described as limited ROM, some bruising, and aching, no radiation to complete numbness, loss of circulation, proximal hand or wrist pain, other trauma, open lesions. Severity is described as mild. Palliating factors include nothing attempted. Provoking factors include nothing specific. Patient not anticoagulated. Related Data Home Medications ?Medication ?Instructions ?Recorded ?Confirmed amlodipine 10 mg tablet 10 mg PO DAILY 12/20/12 10/04/23 epinephrine 0.3 mg/0.3 mL 0.3 mg (0.3 mL) IJ PRN PRN 12/21/12 10/04/23 injection, auto-injector (EpiPen Angioedema ##2 2-Navjot) cetirizine 10 mg chewable tablet 10 mg PO DAILY 11/23/13 10/04/23 fluticasone propionate 50 2 spr NS DAILY PRN PRN 06/27/16 10/04/23 mcg/actuation nasal spray,suspension ibuprofen 800 mg tablet 800 mg PO DAILY 06/27/16 10/04/23 acetaminophen 500 mg tablet 1,000 mg PO Q6H PRN 03/18/20 10/04/23 hydrochlorothiazide 12.5 mg tablet 12.5 mg PO DAILY 03/18/20 10/04/23 meclizine 25 mg chewable tablet 25 mg PO BID 03/18/20 10/04/23 cholecalciferol (vitamin D3) 50 50 mcg PO DAILY 02/23/23 10/04/23 mcg (2,000 unit) capsule benzonatate 100 mg capsule 100 mg PO TID PRN cough #14 caps 03/01/23 10/04/23 empagliflozin 25 mg tablet 12.5 mg PO DAILY 04/05/23 10/04/23 ergocalciferol (vitamin D2) 1,250 1,250 mcg PO QWEEK 04/05/23 10/04/23 mcg (50,000 unit) capsule levetiracetam 250 mg tablet 250 mg PO BID 04/05/23 10/04/23 loratadine 10 mg tablet (Allergy 10 mg PO DAILY 04/05/23 10/04/23 Relief (loratadine)) metformin 500 mg tablet,extended 2,000 mg PO DAILY 04/05/23 10/04/23 release 24 hr rosuvastatin 10 mg tablet 30 mg PO DAILY 04/05/23 10/04/23 metaxalone 800 mg tablet 800 mg PO TID PRN #6 tabs 05/08/23 10/04/23 ketoconazole 2 % topical cream 1 applic topical DAILY #120 grams 10/04/23 10/04/23 Previous Rx's ?Medication ?Instructions ?Recorded epinephrine 0.3 mg/0.3 mL 0.3 mg (0.3 mL) IJ PRN PRN 12/21/12 injection, auto-injector (EpiPen Angioedema ##2 2-Navjot) benzonatate 100 mg capsule 100 mg PO TID PRN cough #14 caps 03/01/23 metaxalone 800 mg tablet 800 mg PO TID PRN #6 tabs 05/08/23 ketoconazole 2 % topical cream 1 applic topical DAILY #120 grams 10/04/23 Allergies Allergy/AdvReac Type Severity Reaction Status Date / Time lisinopril Allergy Severe Anaphylaxsi Verified 05/08/23 18:52 s metoprolol Allergy Severe Anaphylaxsi Verified 05/08/23 18:52 s losartan Allergy . Verified 05/08/23 18:52 General Stated Complaint: Orthopedic ALFREDA: 4 Review of Systems All systems reviewed & are unremarkable except as noted in HPI and below Exam Narrative Exam Narrative: GENERAL APPEARANCE: Well-nourished, non-toxic, awake and alert, atraumatic, no acute distress. SKIN: Warm, pink, dry, intact, without rashes/lesions/ulcerations. HEAD: Normocephalic, atraumatic, normal hair distribution for gender/age. EYES: Normal conjunctiva, no exudates on lids/lashes. ENT: Nares patent, no circumoral cyanosis, no facial swelling NECK: Supple, trachea midline, painless cervical ROM. LUNGS/CHEST: Non-labored respirations, normal A/P diameter, symmetrical expansion, no chest wall deformity HEART (CV/PV): No peripheral edema, no JVD. ABDOMEN: Soft, non-distended, no guarding. MSK: Normal ROM, no swelling/deformity to bilateral UEs or LEs, moving all extremities without weakness, no cyanosis, spine midline without tenderness, normal curvature. R HAND: right thumb mild ecchymosis mild limited range of motion to pain, strength 5/5 in all weems of motion of the thumb, no anatomical snuffbox tenderness, right radial pulse 2+, brisk capillary refill NEURO: Mental Status AAOx4 - alert to person, place, time, events No facial droop, no forehead involvement. Motor: No focal weakness - strength 5/5 in bilateral UEs and LEs, proximal and distal, symmetric. Sensory: sensation intact to light touch globally. Gait normal: patient ambulated without ataxia into ED room. PSYCH: euthymic, cooperative, pleasant, appropriate speech Course Vital Signs Vital signs: Vital Signs Temperature 36.8 C 10/06/23 14:05 Pulse 89 10/06/23 14:05 Respiratory Rate 18 10/06/23 14:05 Blood Pressure 151/89 H 10/06/23 14:05 Pulse Oximetry 96 10/06/23 14:05 Temperature 36.8 C 10/06/23 14:05 Temperature Source Temporal Artery Scan 10/06/23 14:05 Pulse 89 10/06/23 14:05 Respiratory Rate 18 10/06/23 14:05 Blood Pressure 151/89 H 10/06/23 14:05 Blood Pressure Position Sitting 10/06/23 14:05 Pulse Oximetry 96 10/06/23 14:05 Oxygen Delivery Method Room Air 10/06/23 14:05 Oxygen Flow Rate 0 10/06/23 14:05 Medical Decision Making This dictation utilizes [id number] dictation software and may contain unedited grammatical errors. 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 Quality described as limited ROM, some bruising, and aching, no radiation to complete numbness, loss of circulation, proximal hand or wrist pain, other trauma, open lesions. Severity is described as mild. Palliating factors include nothing attempted. Provoking factors include nothing specific. Patients' medical history: Noncontributory. Family and social history: Noncontributory. Pertinent exam findings / vital signs include right thumb mild ecchymosis mild limited range of motion to pain, strength 5/5 in all weems of motion of the thumb, no anatomical snuffbox tenderness, right radial pulse 2+, brisk capillary refill. Differential / pathologies of concern include fracture, sprain/strain, skiers thumb. Diagnostic studies of: -XR R Hand - no acute fracture seen. Interventions of: -provided thumb spica removable brace. ED Course/Assessment/Plan: 58-year-old male presents with minor injury to right thumb isolated trauma no other complaints. X-ray shows no fracture, given a thumb spica brace and recommend RICE therapy and therapeutic dosing Tylenol and ibuprofen, return for any emergent concerns. Findings not consistent with fracture or neurovascular compromise. Disposition of sprain of right thumb. Patient verbalized understanding of the plan and return to ED criteria and engaged in shared decision making. Medical Records Medical records reviewed: Yes I reviewed the patient's medical records. Imaging Data Radiologic Study: Attestation: I personally reviewed and interpreted this imaging study as follows: Imaging: X-Ray Radiologist's impression: EXAM: XR HAND RT COMPLETE CLINICAL HISTORY: Right thumb pain. TECHNIQUE: 2D digital imaging was performed. Three views. COMPARISON: No exams were available for comparison FINDINGS: BONES: No acute fracture is present. No bony destructive lesion is seen. JOINTS: No dislocation present. Minimal degenerative changes at the interphalangeal joints. SOFT TISSUE: Normal. IMPRESSION: Minimal degenerative changes at the interphalangeal joints. Quality:SDOH Health Related Social Needs: No Data to Display PFSH All Active Problems (Updated 10/06/23 @ 15:04 by LILLIAM Artis) Sprain of right thumb (Acute) Diabetes mellitus with autonomic neuropathy (Acute) Corns and callosities (Acute) Varicose veins of both lower extremities (Acute) Umbilical hernia without obstruction and without gangrene (Acute) Type 2 diabetes mellitus (Acute) Sleep apnea (Acute) Sensorineural hearing loss (Acute) Seizures (Acute) Hyperlipidemia (Acute) Follicular disorder (Acute) Gout (Chronic) Hypertension (Chronic) Osteoarthritis of knee (Acute) Medical History Ankle fracture, left 1997 and 2019 with surgical repairs and hardware. Tinea pedis Pigmented purpuric dermatosis Plantar fasciitis Erythema intertrigo Surgical History History of toe surgery 3rd and 4th metatarsal fusion. Artificial knee joint present History of bariatric surgery Social History Smoking/Tobacco Use Status: Never Smoking risk assessment performed?: Yes Alcohol Intake: former Drug use: Never Substance use type: does not use Do you feel safe at home: Yes Do you feel safe in your relationship?: Yes
== END 2023-10-06 15:31 | disposition home or self-care (01) ==
PROVIDERS: Emergency Provider Physician Assistant; PCP Nurse Practitioner Adult Health
DX: S63.601A Unspecified sprain of right thumb, initial encounter (principal); W19.XXXA Unspecified fall, initial encounter
CPT/HCPCS: 99283; 73130

== ENCOUNTER 2024-04-22 11:47 | Outpatient (CLI) | payer OTHER, SELFPAY ==
--- NOTE | 2024-04-22 | DI.RAD_ITS ---
Exam(s) XR HIP PELVIS ADULT BL EXAM: XR HIP PELVIS ADULT BL CLINICAL HISTORY: BILATERAL HIP PAIN, M25.559, [id number]. TECHNIQUE: 2D digital imaging was performed. COMPARISON: No exams were available for comparison FINDINGS: Four views No evidence of pelvic nor hip fracture. There is no significant hip joint space narrowing. No degen erative subarticular cysts. No prominent osteophytes. Bone density normal. No osseous lesions. Sa croiliac joints appear unremarkable. Facet arthropathy is noted in lower lumbar spine IMPRESSION: No acute osseous findings in the pelvis and hips. DATA REPOSITORY: RADIATION DOSE DELIVERED:
== END 2024-04-22 12:07 ==
PROVIDERS: PCP Nurse Practitioner Adult Health; Visit Provider Nurse Practitioner
DX: M25.551 Pain in right hip (principal); M25.552 Pain in left hip
CPT/HCPCS: 73521

== ENCOUNTER 2024-09-13 08:25 | Outpatient (CLI) | payer OTHER, SELFPAY ==
[2024-09-13 08:59] LABS: HCT 44.8 % (40.0-50.0); HGB 14.3 g/dL (13.5-17.5); MCH 27.2 pg (27.0-33.0); MCHC 31.9 % (32.0-36.0); MCV 85 fL (80-95); MPV 8.7 fL (8.0-11.0); Platelet Count 304 10^3/uL (130-400); RBC 5.25 10^6/uL (4.36-5.78); RDW 13.1 % (11.8-14.1); RDW-SD 41.1 fL; WBC 7.19 10^3/uL (4.4-10.8)
[2024-09-13 09:22] LABS: COMMENT (LAB VIEW ONLY) 62.05 mg/dL; Microalb ug/mg Crea 16.3 ug/mg Cr
[2024-09-13 09:30] LABS: Hemoglobin A1C 6.4 % (<5.7)
[2024-09-13 09:34] LABS: ALT 35 U/L (16-63); AST 23 U/L (15-37); Albumin 4.2 g/dL (3.4-5.0); Alkaline Phosphatase 90 U/L (46-116); Anion Gap 6.6 mmol/L (3-11); BUN 17 mg/dL (7-18); Bilirubin, Direct 0.1 mg/dL (0.0-0.2); Bilirubin, Total 0.4 mg/dL (0.2-1.0); CO2 31.4 mmol/L (21.0-32.0); Calcium 9.3 mg/dL (8.5-10.1); Chloride 102 mmol/L (98-107); Estimated GFR 77.33 (mL/min/1.73m2); Glucose 120 mg/dL (74-106); Potassium 4.2 mmol/L (3.5-5.1); Sodium 140 mmol/L (136-145); TSH (W/Ref FT4) 1.85 uIU/mL (0.36-3.74); Total Protein 8.0 g/dL (6.4-8.2); Uric Acid 3.7 mg/dL (3.5-7.2)
[2024-09-13 10:21] LABS: Folate 11.9 ng/mL (8.6-20.0); Vitamin B12 1357 pg/mL (193-986); Vitamin D 25 Total 22 ng/mL (30-100)
[2024-09-13 10:28] LABS: Glucose 500 mg/dL (Negative)
[2024-09-13 10:42] LABS: Iron 52 ug/dL (65-175); Total Iron Binding Capacity 426 ug/dL (250-450); Transferrin Sat 12 % (20-55)
[2024-09-13 18:22] LABS: PSA, Diagnostic 0.3 ng/mL (<=3.5)
[2024-09-16 10:57] LABS: Transferrin 328 mg/dL (201-352)
== END 2024-09-13 08:26 | disposition home or self-care (01) ==
LOC: LBO 08:25
PROVIDERS: PCP Nurse Practitioner Adult Health; Visit Provider Physician Assistant
DX: E78.2 Mixed hyperlipidemia (principal); G40.89 Other seizures
CPT/HCPCS: 36415; 80053; 80076; 82306; 83695; 84403; 85027; 80177; 81003; 82043; 82570; 82607; 82746; 83036; 83540; 83550; 84153; 84443; 84466; 84550

== ENCOUNTER 2024-10-07 07:16 | Emergency (ER) | payer OTHER, SELFPAY ==
[2024-10-07] VITALS (28 sets, daily range): BP systolic 125–174; BP diastolic 72–115; PULSE 57–80; RESP 14–27; TEMP 37.1; O2SAT 91–99
--- NOTE | 2024-10-07 07:15 | RT.EKG_ITS ---
APPROVED REPORT Exam: Resting ECG Reason for Exam: Altered mental status Patient Location: E HR:69 bpm ECG Measurements Heart Rate 69 AXIS IN 223 P 41 QRSd 104 QRS 45 QT 383 T 32 QTc 410 Conclusion Sinus rhythm...normal P axis, V-rate 60- 99 Prolonged IN interval...IN >210, V-rate 50- 90 No Occlusion WA
--- NOTE | 2024-10-07 07:22 | W.ED.GENAD ---
Discharge Plan Disposition Patient Disposition: Home Discharge Details Clinical Impression: Breakthrough seizure Primary Care Provider: Whit Ruiz ED Provider: Dario Kennedy [place] Meds and New Rx's Prescriptions: New levetiracetam 1,000 mg tablet 1,000 mg PO BID Qty: 90 0RF Continued cholecalciferol (vitamin D3) 50 mcg (2,000 unit) capsule 50 mcg PO DAILY rosuvastatin 10 mg tablet 30 mg PO DAILY Patient Comments: [facility] - taking per pt 10/07/24 ketoconazole 2 % cream 1 applic topical DAILY Qty: 120 6RF Rx Instructions: Apply to toenails once daily aspirin 81 mg tablet,delayed release (DR/EC) 81 mg PO DAILY urea 40 % cream 1 applic topical BID carvedilol phosphate 10 mg capsule, ER multiphase 24 hr 3.125 mg PO DAILY Rx Instructions: must administer with a meal/food benzonatate 100 mg capsule 100 mg PO TID PRN (Reason: cough) Qty: 14 0RF metformin 500 mg tablet extended release 24 hr 1,000 mg PO BID empagliflozin 25 mg tablet 12.5 mg PO DAILY ergocalciferol (vitamin D2) 1,250 mcg (50,000 unit) capsule 1,250 mcg PO QWEEK amlodipine 10 MG tablet 10 mg PO DAILY epinephrine [EpiPen 2-Navjot] 0.3 MG/0.3 ML auto-injector 0.3 mg IJ PRN PRN (Reason: Angioedema) Qty: 2 0RF cetirizine 10 MG tablet,chewable 10 mg PO DAILY PRN fluticasone propionate 15.8 ML spray,suspension 2 spr NS DAILY PRN PRN acetaminophen 500 mg Tablet 1,000 mg PO Q6H PRN meclizine 25 mg Tablet,Chewable 25 mg PO BID hydrochlorothiazide 12.5 mg Tablet 12.5 mg PO DAILY metaxalone 800 mg tablet 800 mg PO TID PRNQty: 6 0RF mecobalamin (vitamin B12) 1,000 mcg tablet,chewable 1,000 mcg PO DAILY tadalafil [Cialis] 10 mg tablet 10 mg PO DAILY PRN Rx Instructions: administer approximately 30min before sexual activity; do not use more than 1 dose per 24hrs semaglutide 1 mg/0.2 mL syringe 1 mg subcut QWEEK Discontinued levetiracetam 250 mg tablet 500 mg PO BID Patient Comments: To be increased to 1g B[place] [facility] [place] Discharge Instructions Additional Instructions: You are seen in the emergency department for your seizure. Neurology recommended increasing your levetiracetam to 1000 mg twice a day. A prescription has been sent to your pharmacy. Please refrain from driving swimming or any other activities that could place you at risk if you had another seizure. Please return to the emergency department if you develop any recurrent seizures or if you have any other concerns. Stand Alone Forms: Work Release Discharge Data Discharge Date/Time-TO BE ENTERED AT DEPARTURE: 10/07/24 10:15 HPI General Date/Time Provider Initiated Documentation: 10/07/24 07:17. HPI Narrative: MDM This is an overall well-appearing afebrile and not tachycardic 59-year-old male with history of seizure disorder now postictal status post reported generalized tonic-clonic activity for which patient will undergo neurological assessment with teleneuro following CT head and levetiracetam load. No nuchal rigidity to suggest meningitis so no indication for lumbar puncture. No focal neurological deficits to suggest CVA the patient does have risk factors including diabetes and hyperlipidemia. Given patient is postictal I do not feel he is a candidate for thrombolytics. Will check for acute electrolyte abnormalities. In the absence of chest pain I am not suspicious for ACS so I did not obtain a troponin. Patient has not been vomiting to suggest acute risk for electrolyte abnormalities. 9:55 PM I spoke with Dr. Tejada from neurology who advised increasing the patient's levetiracetam to 1 g twice daily. He also advised no driving for 3 to 6 months. Patient and I discussed driving restriction his was present for this conversation. He reported no need for EEG nor MRI. Patient has outpatient follow-up with neurology at the [facility] next month. We discussed return indications including any recurrent seizures nausea or vomiting. Patient was discharged with an empiric trial of expectant outpatient management. His will drive him home. I gave him a refill on his levetiracetam. Chronic conditions affecting the care of the patient: Hyperlipidemia diabetes History obtained from an outside historian: Patient's External record review: N/A Diagnostic interpretations performed by me: Per my independent interpretation chest x-ray shows:N/A Per my independent interpretation EKG shows: Sinus rhythm at a rate of 69 with interventricular conduction delay and first-degree AV block. QTc within normal limits. Normal axis. No acute injury pattern. No prior for comparison. ]Medications: Levetiracetam Social determinants of health affecting disposition: N/A Management discussed with: Neurology Treatment/interventions considered: N/A Response to therapies provided: N/A HPI The patient presents for evaluation of a seizure. He experienced a full-body seizure lasting 6 minutes, which occurred at 5:15 AM. This is his first seizure in several years. There have been no recent changes in his medication or weight. He was in good health the previous night, with no signs of fever or vomiting. However, he admits to occasionally missing doses of his medication. He has never required intubation due to seizures but was hospitalized for them prior to the COVID-19 pandemic. He took his anti-seizure medication this morning. History obtained from patient's . Exam General: Well-appearing in no acute distress speaking in complete sentences. Head: Normocephalic, atraumatic. Eye:[Pupils equal, round reactive to light.] Intermittently cooperative with testing of extraocular eye movements. Mild bilateral conjunctival injection. No scleral icterus. Ear, nose, mouth, throat: Grossly normal inspection. Normal voice, handling secretions normally. Neck: Trachea midline. Cardiovascular: Well-perfused distal extremities. Regular rate and rhythm Respiratory: Nonlabored respiration. Clear lungs bilaterally Gastrointestinal: Nondistended abdomen. Soft nontender Musculoskeletal: No edema. Moving all 4 extremities spontaneously. Skin: Normal for age and race, grossly normal temperature and turgor. No acute rash. Neurologic: Alert and appropriate. GCS 15. Intermittently adherent with cranial nerve testing. 5 out of 5 bilateral upper and lower extremity strength. Postictal. Related Data Home Medications ?Medication ?Instructions ?Recorded ?Confirmed amlodipine 10 mg tablet 10 mg PO DAILY 12/20/12 10/07/24 epinephrine 0.3 mg/0.3 mL 0.3 mg (0.3 mL) IJ PRN PRN 12/21/12 10/07/24 injection, auto-injector (EpiPen Angioedema ##2 2-Navjot) cetirizine 10 mg chewable tablet 10 mg PO DAILY PRN 11/23/13 10/07/24 fluticasone propionate 50 2 spr NS DAILY PRN PRN 06/27/16 10/07/24 mcg/actuation nasal spray,suspension acetaminophen 500 mg tablet 1,000 mg PO Q6H PRN 03/18/20 10/07/24 hydrochlorothiazide 12.5 mg tablet 12.5 mg PO DAILY 03/18/20 10/07/24 meclizine 25 mg chewable tablet 25 mg PO BID 03/18/20 10/07/24 cholecalciferol (vitamin D3) 50 50 mcg PO DAILY 02/23/23 10/07/24 mcg (2,000 unit) capsule benzonatate 100 mg capsule 100 mg PO TID PRN cough #14 caps 03/01/23 10/07/24 empagliflozin 25 mg tablet 12.5 mg PO DAILY 04/05/23 10/07/24 ergocalciferol (vitamin D2) 1,250 1,250 mcg PO QWEEK 04/05/23 10/07/24 mcg (50,000 unit) capsule metformin 500 mg tablet,extended 1,000 mg PO BID 04/05/23 10/07/24 release 24 hr rosuvastatin 10 mg tablet 30 mg PO DAILY 04/05/23 10/07/24 metaxalone 800 mg tablet 800 mg PO TID PRN #6 tabs 05/08/23 10/07/24 ketoconazole 2 % topical cream 1 applic topical DAILY #120 grams 10/04/23 10/07/24 aspirin 81 mg tablet,delayed 81 mg PO DAILY 03/11/24 10/07/24 release urea 40 % topical cream 1 applic topical BID 03/11/24 10/07/24 carvedilol phosphate 10 mg 3.125 mg PO DAILY 03/14/24 10/07/24 capsule,[id number] multiphase levetiracetam 1,000 mg tablet 1,000 mg PO BID #90 tabs 10/07/24 mecobalamin (vitamin B12) 1,000 1,000 mcg PO DAILY 10/07/24 10/07/24 mcg chewable tablet semaglutide 1 mg/0.2 mL 1 mg subcut QWEEK 10/07/24 10/07/24 subcutaneous syringe tadalafil 10 mg tablet (Cialis) 10 mg PO DAILY PRN 10/07/24 10/07/24 Previous Rx's ?Medication ?Instructions ?Recorded epinephrine 0.3 mg/0.3 mL 0.3 mg (0.3 mL) IJ PRN PRN 12/21/12 injection, auto-injector (EpiPen Angioedema ##2 2-Navjot) benzonatate 100 mg capsule 100 mg PO TID PRN cough #14 caps 03/01/23 metaxalone 800 mg tablet 800 mg PO TID PRN #6 tabs 05/08/23 ketoconazole 2 % topical cream 1 applic topical DAILY #120 grams 10/04/23 levetiracetam 1,000 mg tablet 1,000 mg PO BID #90 tabs 10/07/24 Allergies Allergy/AdvReac Type Severity Reaction Status Date / Time lisinopril Allergy Severe Anaphylaxsi Verified 10/07/24 07:22 s metoprolol Allergy Severe Anaphylaxsi Verified 10/07/24 07:22 s losartan Allergy Unknown Unknown Verified 10/07/24 09:13 General Stated Complaint: Seizure ALFREDA: 3 Course Vital Signs Vital signs: Vital Signs Temperature 37.1 C 10/07/24 07:18 Pulse 80 10/07/24 07:18 Respiratory Rate 20 10/07/24 07:18 Blood Pressure 174/115 H 10/07/24 07:18 Pulse Oximetry 97 10/07/24 07:18 Temperature 37.1 C 10/07/24 07:18 Temperature Source Oral 10/07/24 07:18 Pulse 80 10/07/24 07:18 Respiratory Rate 20 10/07/24 07:18 Blood Pressure 174/115 H 10/07/24 07:18 Blood Pressure Position Sitting 10/07/24 07:18 Pulse Oximetry 97 10/07/24 07:18 Oxygen Delivery Method Room Air 10/07/24 07:18 Oxygen Flow Rate 0 10/07/24 07:18 Pain Level 8 10/07/24 07:18 PFSH All Active Problems (Updated 10/07/24 @ 09:58 by Dario Kennedy MD) Breakthrough seizure (Acute) Diabetes mellitus with autonomic neuropathy (Acute) Corns and callosities (Acute) Varicose veins of both lower extremities (Acute) Umbilical hernia without obstruction and without gangrene (Acute) Type 2 diabetes mellitus (Acute) Sleep apnea (Acute) Sensorineural hearing loss (Acute) Seizures (Acute) Hyperlipidemia (Acute) Follicular disorder (Acute) Gout (Chronic) Hypertension (Chronic) Osteoarthritis of knee (Acute) Medical History Ankle fracture, left 1997 and 2019 with surgical repairs and hardware. Tinea pedis Pigmented purpuric dermatosis Plantar fasciitis Erythema intertrigo Surgical History History of toe surgery 3rd and 4th metatarsal fusion. Artificial knee joint present History of bariatric surgery Social History Smoking/Tobacco Use Status: Never Smoking risk assessment performed?: Yes Alcohol Intake: former Drug use: Never Substance use type: does not use Do you feel safe at home: Yes Do you feel safe in your relationship?: Yes
[2024-10-07 07:40] LABS: Abs Immature Grans 0.03 10^3/uL (0.0-0.06); HCT 43.7 % (40.0-50.0); HGB 14.3 g/dL (13.5-17.5); Immature Grans % 0.4 %; MCH 27.6 pg (27.0-33.0); MCHC 32.7 % (32.0-36.0); MCV 84 fL (80-95); MPV 8.9 fL (8.0-11.0); Platelet Count 223 10^3/uL (130-400); RBC 5.19 10^6/uL (4.36-5.78); RDW 13.2 % (11.8-14.1); RDW-SD 40.1 fL; WBC 8.20 10^3/uL (4.4-10.8)
[2024-10-07] MEDS: levETIRAcetam 2,000 MG in Normal Saline 100 ML 400 MG IVPB (07:52)
[2024-10-07] MEDS: Normal Saline 500 ML IV (07:53)
[2024-10-07 07:57] LABS: ALT 33 U/L (16-63); AST 29 U/L (15-37); Albumin 4.0 g/dL (3.4-5.0); Alkaline Phosphatase 81 U/L (46-116); Anion Gap 10.6 mmol/L (3-11); BUN 13 mg/dL (7-18); Bilirubin, Total 0.3 mg/dL (0.2-1.0); CO2 26.4 mmol/L (21.0-32.0); Calcium 9.3 mg/dL (8.5-10.1); Chloride 102 mmol/L (98-107); Estimated GFR 86.70 (mL/min/1.73m2); Glucose 170 mg/dL (74-106); Magnesium 2.1 mg/dL (1.8-2.4); Potassium 4.0 mmol/L (3.5-5.1); Sodium 139 mmol/L (136-145); Total Protein 7.8 g/dL (6.4-8.2)
--- NOTE | 2024-10-07 08:23 | NUR.NOTE ---
Medication list obtained from the [place]. Nursing Note:
--- NOTE | 2024-10-07 08:52 | DI.CT_ITS ---
Exam(s) CT HEAD WO EXAM: CT HEAD WO CLINICAL HISTORY: Acute encephalopathy. TECHNIQUE: Imaging Protocol: Axial computed tomography images with coronal and sagittal reformatted images were created and reviewed COMPARISON: CT HEAD AND CSPINE W/O CONTRAST from 09/28/[address] HEAD WO from 09/22/2023 FINDINGS: Ventricles and Extra axial spaces: Normal in size and morphology for the patient's age. Hemorrhage: None. Cerebral parenchyma: There are areas of decreased attenuation in the white matter which appears stable and likely reflect chronic microvascular ischemic disease. Midline shift: None. Brainstem/Cerebellum: Normal. Calvarium: Normal. Visualized Paranasal sinuses/Mastoids: There is mild mucosal thickening in the ethmoid air cells bilaterally. The remaining visualized paranasal sinuses are clear as are the mastoid air cells. Soft Tissues: Unremarkable. IMPRESSION: No acute intracranial process. RADIATION DOSE DELIVERED: 875.48mGy.cm Total DLP DATA REPOSITORY: All CT scans at this facility are submitted to the National Radiology Data Registry (NRDR) Dose Index Registry (DIR) with the [employer] ([employer]). RADIATION OPTIMIZATION: All CT scans at this facility use at least one of these dose optimization techniques: automated exposure control; mA and/or kV adjustment per patient size (includes targeted exams where dose is matched to clinical indication); or iterative reconstruction.
== END 2024-10-07 10:15 | disposition home or self-care (01) ==
PROVIDERS: Emergency Provider Emergency Medicine; PCP Nurse Practitioner Adult Health
DX: G40.919 Epilepsy, unspecified, intractable, without status epilepticus (principal); E11.9 Type 2 diabetes mellitus without complications
CPT/HCPCS: 36415; 36416; 80053; 82962; 93005; 96365; 99284; 70450; 83735; 85025; 93010; J1953

== ENCOUNTER 2024-11-14 03:31 | Outpatient (CLI) | payer OTHER, SELFPAY ==
--- NOTE | 2024-11-14 21:44 | PDOC.EEG ---
Neurology EEG EEG: [facility] Department of Neurology EEG REPORT Date of Recordin11/14/24 Interpreting Physician: Dr. Christy Allen PCP/Referring Provider: Dr. Seven Turner Reason for study: Mr. Watson is a 59 year-old with known seizure disorder with recent nocturnal event followed by aggression. Current Medications: Home Medications ?Medication ?Instructions ?Recorded ?Confirmed ?Type amlodipine 10 mg tablet 10 mg PO DAILY 12/20/12 10/07/24 History epinephrine 0.3 mg/0.3 mL 0.3 mg (0.3 mL) IJ PRN PRN 12/21/12 10/07/24 Rx injection, auto-injector (EpiPen Angioedema ##2 2-Navjot) cetirizine 10 mg chewable tablet 10 mg PO DAILY PRN 11/23/13 10/07/24 History fluticasone propionate 50 2 spr NS DAILY PRN PRN 06/27/16 10/07/24 History mcg/actuation nasal spray,suspension acetaminophen 500 mg tablet 1,000 mg PO Q6H PRN 03/18/20 10/07/24 History hydrochlorothiazide 12.5 mg tablet 12.5 mg PO DAILY 03/18/20 10/07/24 History meclizine 25 mg chewable tablet 25 mg PO BID 03/18/20 10/07/24 History cholecalciferol (vitamin D3) 50 50 mcg PO DAILY 02/23/23 10/07/24 History mcg (2,000 unit) capsule benzonatate 100 mg capsule 100 mg PO TID PRN cough #14 caps 03/01/23 10/07/24 Rx empagliflozin 25 mg tablet 12.5 mg PO DAILY 04/05/23 10/07/24 History ergocalciferol (vitamin D2) 1,250 1,250 mcg PO QWEEK 04/05/23 10/07/24 History mcg (50,000 unit) capsule metformin 500 mg tablet,extended 1,000 mg PO BID 04/05/23 10/07/24 History release 24 hr rosuvastatin 10 mg tablet 30 mg PO DAILY 04/05/23 10/07/24 History metaxalone 800 mg tablet 800 mg PO TID PRN #6 tabs 05/08/23 10/07/24 Rx ketoconazole 2 % topical cream 1 applic topical DAILY #120 grams 10/04/23 10/07/24 Rx aspirin 81 mg tablet,delayed 81 mg PO DAILY 03/11/24 10/07/24 History release urea 40 % topical cream 1 applic topical BID 03/11/24 10/07/24 History carvedilol phosphate 10 mg 3.125 mg PO DAILY 03/14/24 10/07/24 History capsule,[id number] multiphase levetiracetam 1,000 mg tablet 1,000 mg PO BID #90 tabs 10/07/24 Rx mecobalamin (vitamin B12) 1,000 1,000 mcg PO DAILY 10/07/24 10/07/24 History mcg chewable tablet semaglutide 1 mg/0.2 mL 1 mg subcut QWEEK 10/07/24 10/07/24 History subcutaneous syringe tadalafil 10 mg tablet (Cialis) 10 mg PO DAILY PRN 10/07/24 10/07/24 History METHODS: A 21 channel digitized electroencephalogram was performed in the [facility]. The 10/20 international system of electrode placement was used and bipolar and referential electrode montages were recorded. In addition to EEG the patient was monitored for EKG and lateral/vertical eye movements. Activation procedures of photic stimulation and hyperventilation were performed if applicable. Video was used during activation procedures and during events where applicable. The duration of the recording was 30 minutes. DESCRIPTION OF EEG: The patient was noted to be awake and drowsy during the recording. During maximal wakefulness a 9-Hz posterior background rhythm was present which was well-modulated, symmetrical, reactive to eye opening, and of moderate voltage. With eye opening the background activity changed to a low voltage mixture of alpha, beta, and occasional theta range frequencies. Faster frequencies were present in the bilateral anterior head regions. There was a normal anterior-posterior voltage gradient. During drowsiness, there was attenuation of the posterior dominant background rhythm and vertex waves. No stage II sleep was recorded. Activating Procedures: Photic stimulation was performed which produced a symmetrical posterior driving response at various flash frequencies. Hyperventilation was performed with moderate effort and produced no physiological slowing of the background. EKG: EKG revealed normal sinus rhythm. INTERPRETATION: This EEG is normal during the awake and drowsy states as well as during photic stimulation and hyperventilation. PRIOR EEG: none CLINICAL CORRELATION: No focal regions of cerebral dysfunction or epileptiform activity was present. No sleep was recorded during the study which reduces the sensitivity of the exam. If seizure remains a part of the differential, consider a repeat sleep-deprived EEG or overnight ambulatory EEG. Epilepsy remains a clinical diagnosis and a normal EEG does not rule out epilepsy. Clinical correlation is advised. Christy Allen MD Date of service: 11/14/24
== END 2024-11-14 03:32 | disposition home or self-care (01) ==
LOC: RT 03:31
PROVIDERS: PCP Nurse Practitioner Adult Health
DX: R56.9 Unspecified convulsions (principal)
CPT/HCPCS: 95816